=== PATIENT | male | born 1965 | race Caucasian/White ===

== ENCOUNTER 2018-02-19 10:29 | Emergency (ER) | payer OTHER ==
--- NOTE | 2018-02-19 11:16 | RAD REPORT ---
EXAM DESCRIPTION: RAD - C Spine Ap/Lat - 02/19/2018 11:02 am CLINICAL HISTORY: Neck pain, right upper extremity radiculopathy COMPARISON: None. FINDINGS: Cervical bodies are normal in height and alignment. No fracture or acute bony process seen . C5-6 disc space narrowing and endplate spurring present. No significant facet joint degenerative ch zari. There is no prevertebral soft tissue thickening or other suspicious soft tissue finding. IMPRESSION: C5-6 disc and endplate degenerative change. Concerns for disc herniation, canal stenosis or foraminal stenosis can be addressed with MR imaging.
--- NOTE | 2018-02-19 11:16 | RAD REPORT ---
EXAM DESCRIPTION: Shoulder Right 2 View - 02/19/2018 11:02 am CLINICAL HISTORY: Neck pain, right shoulder pain COMPARISON: None. TECHNIQUE: Internal and external rotation views of the right shoulder were obtained. FINDINGS: No fracture or dislocation. Acromial humeral joint space is normal. No soft tissue calcifi cations. Minimal degenerative changes are present at the AC joint. IMPRESSION: Minimal AC joint degenerative change.
[2018-02-19] MEDS ORDERED: KETOROLAC 30 MG/ML INJ ONE (11:57)
--- NOTE | 2018-02-19 11:57 | ER ---
Nurse's Notes [facility] Name: Peter Salgado Age: 52 yrs Sex: Male : 1965 Arrival Date: 02/19/2018 Time: 10:32 Bed 12 Private MD: None, None Diagnosis: Pain in right shoulder;Neck Pain Presentation: 02/19 10:34 Presenting complaint: Patient states: " My right shoulder has been bothering me for ph about 3 weeks now. I didn't injure myself but I do a lot of repetitive movements at work." Pt reports pain in R shoulder that radiates to R bicep, R upper back, and R side of neck. Transition of care: patient was not received from another setting of care. Onset of symptoms was February 19, 2018. Risk Assessment: Do you want to hurt yourself or someone else? Patient reports no desire to harm self or others. Initial Sepsis Screen: Does the patient meet any 2 criteria? No. Patient's initial sepsis screen is negative. Does the patient have a suspected source of infection? No. Patient's initial sepsis screen is negative. Care prior to arrival: None. 10:34 Method Of Arrival: Ambulatory ph 10:34 Acuity: STEPHANIA 4 ph Historical: - Allergies: 10:38 No Known Allergies; ph - Home Meds: 10:38 Klonopin 1 mg Oral tab nightly [Active]; ph - PSHx: 10:38 None; ph - Immunization history:: Adult Immunizations unknown. - Social history:: Smoking status: Patient uses tobacco products, smokes one-half pack cigarettes per day. - Ebola Screening: : No symptoms or risks identified at this time. Screenin:47 Abuse screen: Denies threats or abuse. Denies injuries from another. Nutritional aj screening: No deficits noted. Tuberculosis screening: No symptoms or risk factors identified. Fall Risk None identified. Assessment: 10:47 General: Appears in no apparent distress. comfortable, Behavior is calm, cooperative. aj Pain: Complains of pain in right scapular area, anterior aspect of right shoulder and posterior aspect of right shoulder. Neuro: Level of Consciousness is awake, alert, obeys commands, Oriented to person, place, time, situation, Appropriate for age. Respiratory: Airway is patent Respiratory effort is even, unlabored, Respiratory pattern is regular, symmetrical. Derm: Skin is intact, is healthy with good turgor, Skin is pink, warm \\T\\ dry. normal. Musculoskeletal: Reports pain in right scapular area, anterior aspect of right shoulder and posterior aspect of right shoulder. 12:02 Reassessment: Patient appears in no apparent distress at this time. No changes from aj previously documented assessment. Patient and/or family updated on plan of care and expected duration. Pain level reassessed. Patient is alert, oriented x 3, equal unlabored respirations, skin warm/dry/pink. Vital Signs: 10:38 BP 134 / 95; Pulse 89; Resp 18; Temp 97.8; Pulse Ox 98% on R/A; Weight 88.45 kg; Height ph 5 ft. 10 in. (177.80 cm); Pain 8/10; 12:03 BP 141 / 89; Pulse 82; Resp 19; Pulse Ox 99% on R/A; aj 10:38 Body Mass Index 27.98 (88.45 kg, 177.80 cm) ph ED Course: 10:32 Patient arrived in ED. mr 10:32 None, None is Private Physician. mr 10:37 Triage completed. ph 10:38 Arm band placed on. ph 10:43 Agustín Ramirez PA is PHCP. cp 10:43 Dave Worrell MD is Attending Physician. cp 10:47 Latasha Dobson, ROBBY is Primary Nurse. aj 10:47 Patient has correct armband on for positive identification. aj 10:47 No provider procedures requiring assistance completed. aj 10:56 Patient moved to radiology via wheelchair. jw2 10:59 X-ray completed. Patient tolerated procedure well. jw2 10:59 XRAY C Spine Ap/lat In Process Unspecified. EDMS 10:59 XRAY Shoulder RIGHT 2 view In Process Unspecified. EDMS 12:03 Patient did not have IV access during this emergency room visit. aj Administered Medications: 12:02 Drug: TORadol 60 mg Route: IM; Site: right gluteus; aj 12:02 Follow up: Response: Medication administered at discharge. aj Outcome: 11:55 Discharge ordered by . cp 12:03 Discharged to home ambulatory, with family. aj 12:03 Condition: good 12:03 Discharge instructions given to patient, Instructed on discharge instructions, follow up and referral plans. medication usage, Demonstrated understanding of instructions, follow-up care, medications, Prescriptions given X 2. 12:05 Patient left the ED. aj Signatures: Dispatcher [employer] EDLatasha Reina RN RN aj Rivera, Maria mr Hall, Patricia, RN RN Ashley, SOFIYA Randolph cp, Jenni jw2
--- NOTE | 2018-02-19 11:57 | EDPHYS ---
Physician Documentation [facility] Name: Peter Salgado Age: 52 yrs Sex: Male : 1965 Arrival Date: 02/19/2018 Time: 10:32 Bed 12 Private MD: None, None ED Physician Dave Worrell HPI: 02/19 10:50 This 52 yrs old Male presents to ER via Ambulatory with complaints of cp Shoulder Pain. Historical: - Allergies: 10:38 No Known Allergies; ph - Home Meds: 10:38 Klonopin 1 mg Oral tab nightly [Active]; ph - PSHx: 10:38 None; ph - Immunization history:: Adult Immunizations unknown. - Social history:: Smoking status: Patient uses tobacco products, smokes one-half pack cigarettes per day. - Ebola Screening: : No symptoms or risks identified at this time. ROS: 11:00 Constitutional: Negative for body aches, chills, fever, poor PO intake. cp 11:00 Eyes: Negative for injury, pain, redness, and discharge. cp 11:00 Neck: Positive for pain with movement, pain at rest, tenderness, Negative for injury or acute deformity, stiffness. 11:00 Cardiovascular: Negative for chest pain, edema, palpitations. 11:00 Respiratory: Negative for cough, shortness of breath, wheezing. 11:00 Abdomen/GI: Negative for abdominal pain, nausea, vomiting, and diarrhea. 11:00 Back: Positive for pain with movement, of the right trapezius and right scapular area. 11:00 MS/extremity: Positive for pain, tenderness, of the right shoulder, Negative for injury or acute deformity, decreased range of motion, paresthesias, swelling. 11:00 Skin: Negative for cellulitis, rash. 11:00 Neuro: Negative for headache, numbness, tingling, weakness. 11:00 All other systems are negative. Exam: 11:05 Constitutional: The patient appears in no acute distress, alert, awake, cp non-diaphoretic, non-toxic, well developed, well nourished. 11:05 Head/Face: Normocephalic, atraumatic. cp 11:05 Eyes: Periorbital structures: appear normal, Conjunctiva: normal, no exudate, no injection, Sclera: no appreciated abnormality, Lids and lashes: appear normal, bilaterally. 11:05 ENT: External ear(s): are unremarkable, Nose: is normal, Mouth: is normal. 11:05 Neck: External neck: is normal, C-spine: vertebral tenderness, that is mild, crepitus, is not appreciated, ROM/movement: limited range of motion, is not appreciated, nuchal rigidity, is not appreciated. 11:05 Chest/axilla: Inspection: normal, Palpation: is normal, no crepitus, no tenderness. 11:05 Cardiovascular: Rate: normal, Rhythm: regular, Pulses: Pulses are 2+ in right radial artery and left radial artery. Edema: is not appreciated, JVD: is not appreciated. 11:05 Respiratory: the patient does not display signs of respiratory distress, Respirations: normal, no use of accessory muscles, no retractions, no splinting, no tachypnea, Breath sounds: are clear throughout, no decreased breath sounds, no stridor, no wheezing. 11:05 Abdomen/GI: Exam negative for discomfort, distension, guarding, Inspection: abdomen appears normal. 11:05 Back: pain, that is mild, of the right trapezius and right scapular area, ROM is normal, vertebral tenderness, is not appreciated. 11:05 Musculoskeletal/extremity: Perfusion: the extremity is normally perfused throughout, the right arm Sensation intact. Joints: All joints are normal except the right shoulder displays painful range of motion, tenderness. 11:05 Skin: cellulitis, is not appreciated, no rash present. Vital Signs: 10:38 BP 134 / 95; Pulse 89; Resp 18; Temp 97.8; Pulse Ox 98% on R/A; Weight 88.45 kg; Height ph 5 ft. 10 in. (177.80 cm); Pain 8/10; 12:03 BP 141 / 89; Pulse 82; Resp 19; Pulse Ox 99% on R/A; aj 10:38 Body Mass Index 27.98 (88.45 kg, 177.80 cm) ph MDM: 10:43 Patient medically screened. cp 11:00 Differential diagnosis: tendonitis, cervical strain, bulging disc, rotator cuff injury. cp 11:54 Data reviewed: vital signs, nurses notes, radiologic studies, plain films, and as a cp result, I will discharge patient. 11:54 Test interpretation: by ED physician or midlevel provider: plain radiologic studies. cp Counseling: I had a detailed discussion with the patient and/or guardian regarding: the historical points, exam findings, and any diagnostic results supporting the discharge/admit diagnosis, radiology results, the need for outpatient follow up, a family practitioner, to return to the emergency department if symptoms worsen or persist or if there are any questions or concerns that arise at home. 02/19 10:48 Order name: XRAY C Spine Ap/lat; Complete Time: 11:25 cp 02/19 11:25 Interpretation: Report reviewed. cp 02/19 10:48 Order name: XRAY Shoulder RIGHT 2 view; Complete Time: 11:25 cp Administered Medications: 12:02 Drug: TORadol 60 mg Route: IM; Site: right gluteus; aj 12:02 Follow up: Response: Medication administered at discharge. Disposition: 02/19/18 11:55 Discharged to Home. Impression: Neck Pain, Pain in right shoulder. - Condition is Stable. - Discharge Instructions: Musculoskeletal Pain, Shoulder Pain. - Prescriptions for Cyclobenzaprine 10 mg Oral Tablet - take 1 tablet by ORAL route every 8 hours As needed; 20 tablet. Diclofenac Sodium 75 mg Oral Tablet, Delayed Release (E.C.) - take 1 tablet by ORAL route 2 times per day; 20 tablet. - Medication Reconciliation Form, Thank You Letter, Antibiotic Education, Prescription Opioid Use form. - Follow up: Private Physician; When: 2 - 3 days; Reason: Recheck today's complaints. - Problem is an ongoing problem. - Symptoms are unchanged. Addendum: 02/20/2018 14:53 Co-signature as Attending Physician, Dave Worrell MD. g s Signatures: Dispatcher [employer] Latasha Talley RN RN aj Hall, Patricia, RN RN Agustín Pruitt PA PA cp Starr, Gregory, MD MD gs Corrections: (The following items were deleted from the chart) 02/19 12:05 11:55 02/19/2018 11:55 Discharged to Home. Impression: Neck PainPain in right shoulder. aj Condition is Stable. Forms are Medication Reconciliation Form, Thank You Letter, Antibiotic Education, Prescription Opioid Use. Follow up: Private Physician; When: 2 - 3 days; Reason: Recheck today's complaints. Problem is an ongoing problem. Symptoms are unchanged. cp
== END 2018-02-19 12:05 | disposition home or self-care (01) ==
LOC: ER 10:29
DX: M25.511 Pain in right shoulder (principal); F17.210 Nicotine dependence, cigarettes, uncomplicated
CPT/HCPCS: 72040; 96372; 99283

== ENCOUNTER 2020-07-25 20:59 | Emergency (ER) | payer OTHER ==
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
--- OUTSIDE RECORDS SUMMARY | 2020-07-25 21:03 | XMS REPORT ---
:1965 Author Organization [employer] Care Team Providers Name Role Phone Sunny Iglesias Provider Role Unavailable Allergies No Known Allergies Problems Problem Type Condition Code Onset Dates Condition Statu s Problem Smoker F17.200 Active Problem Anxiety F41.9 Active Problem Primary insomnia F51.01 Active Assessment Anxiety F41.9 Active Medications Medication Code System Code Instructions Start Date End Date Status Dosage clonazepam [facility] [id number] 1 mg orally Twice Active 1 tab(s) daily PRN Results No Known Results Summary Purpose eClinicalWorks Submission
--- OUTSIDE RECORDS SUMMARY | 2020-07-25 21:03 | XMS REPORT ---
:1965 Author Organization [employer] Care Team Providers Name Role Phone Sunny Iglesias Provider Role Unavailable Allergies No Known Allergies Problems Problem Type Condition Code Onset Dates Condition Statu s Problem Smoker F17.200 Active Problem Anxiety F41.9 Active Problem Primary insomnia F51.01 Active Medications No Known Medications Results No Known Results Summary Purpose eClinicalWorks Submission
--- OUTSIDE RECORDS SUMMARY | 2020-07-25 21:03 | XMS REPORT ---
:1965 Author Organization [employer] Care Team Providers Name Role Phone Chrissy Vargas Provider Role Unavailable Allergies, Adverse Reactions, Alerts Substance Reaction Event Type N.K.D.A. Info Not Available Non Drug Allergy Problems Problem Type Condition Code Onset Dates Condition Statu s Problem Smoker F17.200 Active Problem Anxiety F41.9 Active Problem Primary insomnia F51.01 Active Assessment Anxiety F41.9 Active Medications Medication Code Code Instructions Start End Status Dosage System Date Date clonazepam NDC 81264190244 1 mg orally Active 1 tab (s) Twice daily PRN Chantix NDC [id number] 0.5 mg-1 mg Oct 15, Active as direc elizabeth Starter Pack orally as 2020 directed Vital Signs Date/Time: May 06, 2020 Height 71 in Weight 204.6 lbs Temperature 97.6 F Pulse 84 /min BMI 28.53 Index Blood Pressure Diastolic 80 mm Hg Blood Pressure Systolic 128 mm Hg Results Name Result Date Reference Range Unit Abnormali ty Flag Urine Drug Test-Cup ----Buprenorphine (BUP) neg 20200506 ----Oxycodone (OXY) neg 20200506 ----Methadone (MTD) neg 20200506 ----Benzodiazepines (BZO) neg 20200506 ----Barbiturates (BAR) neg 20200506 ----Marijuana (THC) neg 20200506 ----Opiates (OPI) neg 20200506 ----Cocaine (PEACE) neg 20200506 ----Amphetamines (AMP) neg 20200506 ----Methamphetamine (MET) neg 20200506 Summary Purpose eClinicalWorks Submission
--- OUTSIDE RECORDS SUMMARY | 2020-07-25 21:03 | XMS REPORT ---
:1965 Author Organization e[employer]Works Care Team Providers Name Role Phone Chrissy Vargas Provider Role Unavailable Allergies No Known Allergies Problems Problem Type Condition Code Onset Dates Condition Statu s Problem Smoker F17.200 Active Problem Anxiety F41.9 Active Problem Primary insomnia F51.01 Active Medications Medication Code System Code Instructions Start Date End Date Status Dosage clonazepam [facility] [id number] 1 mg orally Twice Active 1 tab(s) daily PRN Results No Known Results Summary Purpose eClinicalWorks Submission
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
[2020-07-25] MEDS ORDERED: NA CHLORIDE 0.9% 1,000 ML ONE (21:42)
[2020-07-25 21:49] LABS: Absolute Lymphocytes (CBC) 2.9 K/uL (0.7-4.9); Basophils % 0.7 % (0-1.3); Hematocrit 44.9 % (39.6-49.0); Lymphocytes % 29.3 % (15.3-44.8); MPV 9.3 fL (7.6-11.3)
[2020-07-25 22:04] LABS: Potassium 3.5 mmol/L (3.5-5.1)
--- NOTE | 2020-07-25 22:54 | ER ---
Nurse's Notes [facility] Name: Peter Salgado Age: 55 yrs Sex: Male : 1965 Arrival Date: 07/25/2020 Time: 21:01 Bed 7 Private MD: Diagnosis: Acute pharyngitis Presentation: 07/25 21:08 Chief complaint: Patient states: I have felt feverish and a headache and sore throat sg now for about 2 or three days. I had diarrhea that has cleared up, that was like 4 days ago. No other symptoms reported at this time for triage nurse. Coronavirus screen: chills, fever, headache, sore throat, Client presents with at least one sign or symptom that may indicate coronavirus-19. Standard/surgical mask placed on the client. Provider contacted for isolation considerations. The client denies any previous COVID testing. Ebola Screen: Patient negative for fever greater than or equal to 101.5 degrees Fahrenheit, and additional compatible Ebola Virus Disease symptoms Patient denies exposure to infectious person. Patient denies travel to an Ebola-affected area in the 21 days before illness onset. No symptoms or risks identified at this time. Initial Sepsis Screen: Does the patient meet any 2 criteria? No. Patient's initial sepsis screen is negative. Does the patient have a suspected source of infection? No. Patient's initial sepsis screen is negative. Risk Assessment: Do you want to hurt yourself or someone else? Patient reports no desire to harm self or others. Onset of symptoms was July 23, 2020. Care prior to arrival: None. Transition of care: patient was not received from another setting of care. 21:08 Acuity: STEPHANIA 4 sg 21:08 Method Of Arrival: Ambulatory sg Triage Assessment: 21:10 Headache History: The patient has had previous headaches. General: Appears in no rr5 apparent distress. uncomfortable, Behavior is calm, cooperative, appropriate for age. Pain: Pain Pain began gradually, Also complains of no other associated symptoms. Historical: - Allergies: 21:11 No Known Allergies; sg - Home Meds: 21:11 Klonopin 1 mg Oral tab nightly [Active]; sg - PMHx: 21:11 Anxiety; PTSD; sg - PSHx: 21:11 None; sg - Immunization history:: Adult Immunizations up to date. - Social history:: Smoking status: Patient reports the use of cigarette tobacco products, smokes one-half pack cigarettes per day, Patient uses alcohol, only on a social basis. reports has been "partying" today, had about 6 pack of beer. Screenin:30 Abuse screen: Denies threats or abuse. Denies injuries from another. Nutritional rr5 screening: No deficits noted. Tuberculosis screening: No symptoms or risk factors identified. Fall Risk IV access (20 points). Total Trinidad Fall Scale indicates No Risk (0-24 pts). Assessment: 21:10 General: Appears in no apparent distress. uncomfortable, Behavior is calm, cooperative, rr5 appropriate for age. 21:10 Pain: Complains of pain in throat Pain does not radiate. Pain Quality of pain is rr5 described as aching, Pain began gradually, Is intermittent. Neuro: Level of Consciousness is awake, alert, obeys commands, Oriented to person, place, time, situation, Reports headache. Cardiovascular: Capillary refill < 3 seconds Patient's skin is warm and dry. Respiratory: Airway is patent Respiratory effort is even, unlabored, Respiratory pattern is regular, symmetrical. GI: Reports diarrhea. : No signs and/or symptoms were reported regarding the genitourinary system. EENT: No signs and/or symptoms were reported regarding the EENT system. Derm: Skin is intact, is healthy with good turgor, Skin temperature is warm. Musculoskeletal: Circulation, motion, and sensation intact. Capillary refill < 3 seconds. 22:10 Reassessment: Patient appears in no apparent distress at this time. Patient is alert, rr5 oriented x 3, equal unlabored respirations, skin warm/dry/pink. awaiting for results Patient states symptoms have improved. 23:06 Reassessment: Patient appears in no apparent distress at this time. Patient is alert, rr5 oriented x 3, equal unlabored respirations, skin warm/dry/pink. discharge instruction given and explained without complaints made Patient states feeling better. Patient states symptoms have improved. Vital Signs: 21:07 BP 142 / 88; Pulse 88; Resp 16; Temp 97.7; Pulse Ox 100% on R/A; Weight 79.38 kg (R); sg Height 5 ft. 10 in. (177.80 cm); Pain 3/10; 21:48 BP 121 / 79; Pulse 92; Resp 17; Temp 98.1; Pulse Ox 99% ; rr5 22:30 BP 126 / 89; Pulse 85; Resp 16; Pulse Ox 99% ; rr5 23:10 BP 116 / 70; Pulse 80; Resp 17; Pulse Ox 98% ; rr5 21:07 Body Mass Index 25.11 (79.38 kg, 177.80 cm) ED Course: 21:01 Patient arrived in ED. ag5 21:04 Mejia Mike, RN is Primary Nurse. rr5 21:08 Arm band placed on. sg 21:11 Triage completed. sg 21:12 Christofer Anderson, RENU is PHCP. pm1 21:12 Sb Young MD is Attending Physician. pm1 21:35 Flu and/or RSV swab sent to lab. Strep swab sent to lab. covid. rr5 21:40 Inserted saline lock: 20 gauge in right forearm, using aseptic technique. Blood rr5 collected. 21:50 Patient has correct armband on for positive identification. Placed in gown. Bed in low rr5 position. Call light in reach. Side rails up X2. Pulse ox on. NIBP on. 23:07 No provider procedures requiring assistance completed. IV discontinued, intact, rr5 bleeding controlled, No redness/swelling at site. Pressure dressing applied. Administered Medications: 21:44 Drug: NS 0.9% 1000 ml Route: IV; Rate: 1000 ml; Site: right forearm; rr5 22:36 Follow up: Response: No adverse reaction; IV Status: Completed infusion; IV Intake: rr5 1000ml Intake: 22:36 IV: 1000ml; Total: 1000ml. rr5 Outcome: 22:53 Discharge ordered by . pm1 23:07 Discharged to home ambulatory. rr5 23:07 Condition: stable 23:07 Discharge instructions given to patient, Instructed on discharge instructions, follow up and referral plans. Demonstrated understanding of instructions, follow-up care. 23:07 Patient left the ED. rr5 Addendum: 07/28/2020 17:33 Addendum: COVID-19 Result: Negative result given to RN to notify pt. Notified pt of a a5 negative COVID 19 swab results. Pt advised that even with a negative test result they should remain in isolation until symptom free for 3 days without medication. Pt also advised to return to the ED for worsening symptoms. 07/29/2020 08:26 Addendum: Culture Results: Positive throat culture. Patient was not prescribed s s antibiotics at discharge. Report given to [facility] for further evaluation and then to [facility] for follow up with patient. 18:43 Addendum: Culture Results: Positive throat culture. Phone call Attempt #1 called s s patient. Pt reports he is feeling better, but thinks his throat may still be bothering him. Augmentin called in to [facility] in [place]. Signatures: Callum Corley RN RN sg Kell Reeves RN RN aa5 Karen Pyle, RN RN ss Christofer Anderson, MECHANICAL FIELD ENGINEER MECHANICAL FIELD ENGINEER pm1 Mejia Mike RN RN rr5 Brayden Hernandez 5
--- NOTE | 2020-07-25 22:54 | EDPHYS ---
Physician Documentation [facility] Name: Peter Salgado Age: 55 yrs Sex: Male : 1965 Arrival Date: 07/25/2020 Time: 21:01 Bed 7 Private MD: ED Physician Sb Young HPI: 07/25 22:46 This 55 yrs old Male presents to ER via Ambulatory with complaints of pm1 Headache, Sore Throat. 22:46 The patient presents with sore throat. The patient describes throat pain as scratchy. pm1 Onset: The symptoms/episode began/occurred 3 day(s) ago. Severity of symptoms: in the emergency department the symptoms have improved. Modifying factors: Denies contact with similarly ill indivduals. Associated signs and symptoms: Pertinent positives: headache, Pertinent negatives cough, fever. The patient has not recently seen a physician. Diarrhea x 2 that has resolved. Patient is concerned that he might have cherry virus but think that is strep throat. Due to recent moving home, does not feel that he is eating and drinking well and is concerned that he is dehydrated. Historical: - Allergies: 21:11 No Known Allergies; sg - Home Meds: 21:11 Klonopin 1 mg Oral tab nightly [Active]; sg - PMHx: 21:11 Anxiety; PTSD; sg - PSHx: 21:11 None; sg - Immunization history:: Adult Immunizations up to date. - Social history:: Smoking status: Patient reports the use of cigarette tobacco products, smokes one-half pack cigarettes per day, Patient uses alcohol, only on a social basis. reports has been "partying" today, had about 6 pack of beer. ROS: 22:49 Eyes: Negative for injury, pain, redness, and discharge. pm1 22:49 Neck: Negative for injury, pain, and swelling, Cardiovascular: Negative for chest pain, palpitations, and edema, Respiratory: Negative for shortness of breath, cough, wheezing, and pleuritic chest pain. 22:49 Back: Negative for injury and pain, : Negative for injury, bleeding, discharge, and swelling, MS/Extremity: Negative for injury and deformity, Skin: Negative for injury, rash, and discoloration. 22:49 Constitutional: Positive for poor PO intake, subjective fever. 22:49 ENT: Positive for sore throat, Negative for drainage from ear(s), ear pain. 22:49 Abdomen/GI: Positive for diarrhea, Negative for abdominal pain, nausea and vomiting. 22:49 Neuro: Positive for headache. Exam: 22:49 Constitutional: This is a well developed, well nourished patient who is awake, alert, pm1 and in no acute distress. Head/Face: Normocephalic, atraumatic. 22:49 Neck: Trachea midline, no thyromegaly or masses palpated, and no cervical lymphadenopathy. Supple, full range of motion without nuchal rigidity, or vertebral point tenderness. No Meningismus. 22:49 Back: No spinal tenderness. No costovertebral tenderness. Full range of motion. Skin: Warm, dry with normal turgor. Normal color with no rashes, no lesions, and no evidence of cellulitis. MS/ Extremity: Pulses equal, no cyanosis. Neurovascular intact. Full, normal range of motion. 22:49 ENT: External ear(s): are unremarkable, Ear canal(s): are normal, TM's: are normal, Posterior pharynx: is normal, airway is patent, Tonsils: bilaterally enlarged, with erythema, no exudate, no ulcerations, erythema, that is mild, peritonsillar mass, is not appreciated, pooling of secretions, is not appreciated. 22:49 Cardiovascular: Exam negative for acute changes, Rate: normal, Rhythm: regular, Pulses: no pulse deficits are appreciated. 22:49 Respiratory: Exam negative for acute changes, respiratory distress, shortness of breath. 22:49 Neuro: Exam negative for acute changes, Orientation: is normal, Mentation: is normal, Motor: is normal, moves all fours. Vital Signs: 21:07 BP 142 / 88; Pulse 88; Resp 16; Temp 97.7; Pulse Ox 100% on R/A; Weight 79.38 kg (R); sg Height 5 ft. 10 in. (177.80 cm); Pain 3/10; 21:48 BP 121 / 79; Pulse 92; Resp 17; Temp 98.1; Pulse Ox 99% ; rr5 22:30 BP 126 / 89; Pulse 85; Resp 16; Pulse Ox 99% ; rr5 23:10 BP 116 / 70; Pulse 80; Resp 17; Pulse Ox 98% ; rr5 21:07 Body Mass Index 25.11 (79.38 kg, 177.80 cm) MDM: 21:14 Patient medically screened. pm1 22:51 Data reviewed: vital signs. Data interpreted: Pulse oximetry: on room air is 99 %. pm1 Interpretation: normal. 22:51 Counseling: I had a detailed discussion with the patient and/or guardian regarding: the pm1 historical points, exam findings, and any diagnostic results supporting the discharge/admit diagnosis, lab results, the need for outpatient follow up, to return to the emergency department if symptoms worsen or persist or if there are any questions or concerns that arise at home, pending covid19 results. 07/25 21:23 Order name: Flu; Complete Time: 22:51 pm1 07/25 21:23 Order name: Strep; Complete Time: 22:51 pm1 07/25 21:23 Order name: COVID-19 pm1 07/25 21:23 Order name: BMP; Complete Time: 22:45 pm1 07/25 21:23 Order name: CBC with Diff; Complete Time: 22:45 pm1 07/25 22:47 Order name: Throat Culture [facility] 07/25 21:23 Order name: IV Saline Lock; Complete Time: 21:45 pm1 Administered Medications: 21:44 Drug: NS 0.9% 1000 ml Route: IV; Rate: 1000 ml; Site: right forearm; rr5 22:36 Follow up: Response: No adverse reaction; IV Status: Completed infusion; IV Intake: rr5 1000ml Disposition: 07/26 06:26 Co-signature as Attending Physician, Sb Young MD. [email or web address] Disposition: 07/25/20 22:53 Discharged to Home. Impression: Acute pharyngitis. - Condition is Stable. - Discharge Instructions: Pharyngitis. - Work release form, Medication Reconciliation Form, Thank You Letter, Antibiotic Education, Prescription Opioid Use form. - Follow up: Emergency Department; When: As needed; Reason: Worsening of condition. Follow up: Private Physician; When: 2 - 3 days; Reason: Recheck today's complaints, Continuance of care, Re-evaluation by your physician. - Problem is new. - Symptoms have improved. Signatures: Dispatcher [employer] EDMA Callum Corley RN RN Christofer Anderson, APPLE THINNER APPLE THINNER pm1 Mejia Mike RN RN rr5 Sb Young MD MD [email or web address] Corrections: (The following items were deleted from the chart) 07/25 23:07 22:53 07/25/2020 22:53 Discharged to Home. Impression: Acute pharyngitis. Condition is rr5 Stable. Forms are Medication Reconciliation Form, Thank You Letter, Antibiotic Education, Prescription Opioid Use. Follow up: Emergency Department; When: As needed; Reason: Worsening of condition. Follow up: Private Physician; When: 2 - 3 days; Reason: Recheck today's complaints, Continuance of care, Re-evaluation by your physician. Problem is new. Symptoms have improved. pm1
[2020-07-25 23:48] VITALS: BP 121/79; TEMP 98.1; O2SAT 99
== END 2020-07-25 23:07 | disposition home or self-care (01) ==
LOC: ER 20:59
DX: J02.9 Acute pharyngitis, unspecified (principal); Z20.828 Contact with and (suspected) exposure to other viral communicable diseases; F41.9 Anxiety disorder, unspecified; F17.210 Nicotine dependence, cigarettes, uncomplicated
CPT/HCPCS: 87070; 85025; 80048; 36415; 87081; 87077; 87186; 87804 ×2; 96360; 99284; U0002; J7030